=== PATIENT | female | born 1945 | race Caucasian/White ===

== ENCOUNTER 2024-10-02 12:20 | Emergency (ER) | payer MEDICARE, SELFPAY ==
[2024-10-02 12:21] VITALS: BP 119/66; PULSE 102; RESP 18; TEMP 35.8; O2SAT 98
--- NOTE | 2024-10-02 12:46 | ED.VIS.FALL ---
HPI HPI - Fall History of Present Illness Chief Complaint: Fall Informant: patient Occured/Mechanism Occurred: Today Mechanism/Context: Yes same level fall Usually ambulates: Without assistance Pain/Injury Pain Location: upper extremity and lower extremity Quality of Pain: Dull and Aching Current Severity: Mild Maximum Severity: Mild Associated Symptoms Associated Symptoms: Negative for Parasthesias, Weakness, Loss of function, Inability to ambulate, Loss of consciousness or Amnesia Narrative Narrative: 79-year-old female who was flying in from [place] yesterday to go to her sister's wedding. She was in the [place] airport on the escalator tripped fell causing abrasions to her arms and lower legs. No LOC. Bruise to her left thigh. Did not hit her head. No chest, abdominal or back pain. Patient is not on blood thinners. This occurred around 12:30 AM this morning. Unknown her last tetanus. Tetanus Immunization: Unknown Prior similar symptoms: No Recent Illness/Hospitalization: No PFSH PFSH Medical History no medical history Allergy/AdvReac Type Severity Reaction Status Date / Time No Known Allergies Allergy Verified 10/02/24 12:20 Family History no significant family his Surgical History no surgical history Social History Smoking Status: Former smoker ROS ROS ED ROS Narrative Denies recent illness. Constitutional Constitutional ED: Denies chills or fever(s) Eyes Eyes: Denies blurry vision ENT ENT ED: Denies ear pain Cardiovascular Cardiovascular: Denies chest pain Respiratory/Chest Respiratory/Chest: Denies cough Gastrointestinal Gastrointestinal: Denies abdominal pain Genitourinary Genitourinary ED: Denies dysuria Musculoskeletal Musculoskeletal: Denies arthralgias Integumentary Denies abscess Neurologic Neurologic: Denies headache(s) Psychiatric Psychiatric: Denies anxiety Endocrine Endocrinology: Denies polydipsia Hematologic/Lymphatic Hematologic/Lymphatic: Denies easy bleeding, easy bruising or lymphadenopathy Allergic/Immunologic Allergic/Immunologic ED: Denies mouth swelling, tongue swelling or urticaria EXAM Physical Exam Narrative Exam Narrative: 79-year-old female sitting upright in bed. Vital signs are stable afebrile. H EENT exam pupils round reactive light. No trauma to her face or scalp. Nontender. C-spine and neck nontender. Back and spine nontender. Lungs clear to auscultation. Heart regular rhythm rate about 100 no murmur. Chest wall and ribs nontender. Abdomen soft, nontender, nondistended normal bowel sounds peritoneal signs. Pelvic girdle intact. Moving all 4 extremities. No rash intact. Normal range of motion. Hips are nontender. No shortening or rotation. Is a small bruise on her left mid thigh. No bony tenderness or deformity. She has normal flexion extension of both hips knees ankles. Normal dorsi plantarflexion. She has abrasions on both lower extremities just above the ankle area. Feet are neurovascularly intact. Her left upper extremity there is abrasions also. Nothing needs to be sewn. There is no infection or foreign body. She has normal range of motion to both upper and lower extremities. Neurologically she is awake and alert. Answer questions following commands. Const Vital Signs: 10/02/24 12:21 Temperature 96.5 F L Temperature Source Temporal Pulse Rate 102 H Respiratory Rate 18 Blood Pressure 119/66 Blood Pressure Mean 83 Pulse Ox 98 Oxygen Delivery Method Room Air Positive well nourished and well developed; Negative for cachectic, contractures or unkempt General Appearance ED: well developed and NAD; Negative for unkempt, cachectic or contractures Nutritional Appearance: Negative for cachectic HEENT Reports normocephalic atraumatic; Negative for trauma, contusion, hematoma or tenderness Eyes PERRL and EOMs intact bilaterally General Eye ED: Negative for pale conjunctiva or scleral icterus Neck full ROM and no lymphadenopathy General: Negative for tenderness Chest Wall inspection of chest normal and palpation of chest normal Resp normal respiratory effort, no retractions and clear to auscultation bilaterally Cardio regular rate, regular rhythm, S1 normal heart sound, S2 normal heart sound and no murmurs GI non-tender, non-distended and no masses Inspection: Negative for abdominal distention Palpation: soft; Negative for guarding or rebound tenderness present Back/Spine no CVA tenderness General Back: Negative for CVA tenderness Cervical Spine: Negative for cervical spine tenderness Lumbar Spine / Lower Back: Negative for lumbar spinal tenderness Neuro oriented x3, CN's II-XII intact bilaterally, moves all extremities and no focal motor deficits Suzie Coma Scale: document GCS findings Spontaneous Obeys Commands Oriented 15 Sensorium / Orientation: alert, oriented to person, oriented to place and oriented to time; Negative for orientation impaired, confused or lethargic Motor Exam: strength 5/5 throughout Psych mental status grossly normal and thought process normal Appearance: Negative for unkempt Attitude: No agitated Mood & Affect: Negative for depressed, anxious or tearful Skin Skin Narrative: Abrasions to both lower extremities around the ankle area and lower leg. Also left proximal forearm. Bruise left anterior proximal thigh. Lesions: no lesions Rashes: no rashes Trauma: abrasion MDM MDM MDM Narrative Medical decision making narrative: 79-year-old fell last night around 1230 and this morning on the [facility] airport. She has abrasions to the left forearm and both lower extremities. This can be cleaned and dressed. Tetanus will be updated. Nothing needs to be sewn. She has a bruise on her left thigh. She has been able to ambulate on it. I offered her an x-ray to rule out a femur fracture even though clinically I think it is less likely. She deferred. She does return if it is not improving. Wound care. Tylenol. Ice. History & Record Review Discussion w/independent historian: Patient Discharge Plan Triage Chief Complaint: Fall Other Complaint: Wound Check ED Provider: Raj Ricks Dx/Rx/DC Orders Clinical Impression: Fall, Abrasion, Contusion of left anterior thigh Instructions: ED Abrasion, ED Contusion, Lower Extremity Primary Care Provider: NOT,DEFINED Referrals: NOT,DEFINED [Primary Care Provider] - Activity Restrictions/Additional Instructions: Keep the abrasions to your forearms and legs clean. Clean daily with soap water peroxide and water. Antibiotic ointment to the area. Watch for any signs of infection. Ice to the bruise on your left thigh. If that is getting worse or harder to walk on get it x-rayed. Tylenol for pain. Follow-up with your [place] doctor as needed. Tetanus was updated and is good for 10 years. Print Language: Taiwanese Disposition Disposition: Home, Self Care
[2024-10-02] MEDS: Diphth,Pertuss(Acell),Tet Vac 0.5 ML Vial IM (13:01)
[2024-10-02 13:18] VITALS: BP 125/72; PULSE 90; RESP 16; TEMP 35.8; O2SAT 98
== END 2024-10-02 13:25 | disposition home or self-care (01) ==
LOC: ED 12:51
PROVIDERS: Emergency Provider Emergency Medicine; Visit Provider Emergency Medicine
DX: S70.12XA Contusion of left thigh, initial encounter (principal); S80.811A Abrasion, right lower leg, initial encounter; S80.812A Abrasion, left lower leg, initial encounter; S40.811A Abrasion of right upper arm, initial encounter; S50.812A Abrasion of left forearm, initial encounter; Z23 Encounter for immunization; W10.0XXA Fall (on)(from) escalator, initial encounter; Y92.520 Airport as the place of occurrence of the external cause; Z87.891 Personal history of nicotine dependence
CPT/HCPCS: 90715; 99283